=== PATIENT | male | born 1965 | race Caucasian/White ===

== ENCOUNTER 2017-06-02 18:41 | Emergency (ER) | payer OTHER ==
--- NOTE | 2017-06-02 21:15 | ED CLINICAL REPORT ---
Clinical Report - Physicians/Mid Levels [facility] [address] [place] [address] 06/02/2017 18:40 Patient: VALENTINA GARNICA Time Seen: 18:55. Arrived- By private vehicle. Historian- patient. HISTORY OF PRESENT ILLNESS Chief Complaint: DOG BITE. Location of injuries- right hand and left hand and left knee. The injury occurred just prior to arrival. The animal reportedly appeared well and the immunization status of the animal is unknown. Animal control has been notified. Occurred on a street. This was an "unprovoked" attack. (his mother's dog was on a leash. Someone else opened a vehicle and another dog jumped out and attacked her dog. He tried to separate the 2 and the other dog bit him on the hands and on the left knee.). REVIEW OF SYSTEMS No chills, fever, sweats, calf pain or chest pain. No cough, difficulty breathing, pedal edema, palpitations or abdominal pain. No constipation, diarrhea, nausea, vomiting or urinary problems. All systems otherwise negative, except as recorded above. PAST HISTORY Tetanus immunization status is unknown. Problems: Alcohol Intoxication. Burn. Medication Refill. Lip Laceration. Laceration. Hypertension. Dizziness. Lung Disease. Contusion. Abrasion(s). Hypokalemia. Hyponatremia. Substance Abuse. Alcohol Withdrawal. Emphysema. COPD - Chronic Obstructive Pulmonary Disease. Alcoholism. Lower Extremity Pain. Cellulitis. Fall. Foot Fracture. Anemia. Lifestyle / Substance Problems. Thrombocytopenia. Additional Surgeries: Fracture Repair. Leg surgery. Skin grafting. Medications: Albuterol Sulfate HFA Inhalation. Allergies: No Known Drug Allergy. SOCIAL HISTORY Current every day heavy tobacco smoker (cigarette)- less than 1 pack per day. Regular alcohol use. History of drug use: marijuana. FAMILY HISTORY No significant family medical history. ADDITIONAL NOTES The nursing notes have been reviewed. PHYSICAL EXAM Vital Signs: 06/02/2017 18:54 BP: 111/84. HR: 89. RR: 18. O2 saturation: 99%. Temp: 98.1 F. Pain level now: 8/10. Have been reviewed. Appearance: Alert. Head: Head normal on inspection. Eyes: Eyes normal inspection. Neck: Normal inspection. CVS: Heart sounds normal. Respiratory: Breath sounds normal. Abdomen: Normal inspection. Soft and nontender. Back: Normal inspection. No tenderness. Skin: (Prior grafting scars of the lower extremities and left hand.). Extremities: Right hand: multiple small and deep abrasions. (located on the lateral aspect fifth finger). Dorsal left hand: multiple small abrasions. Left knee: superficial 5.0 cm laceration. SEE LACERATION PROCEDURE NOTE #1. Neurovascular intact distally. PROGRESS AND PROCEDURES Laceration Repair: Location: left knee. Time-out completed immediately before the procedure. Length: 5 cm. Complexity: simple (sutured). Wound depth/shape- linear and irregular. Contamination present. Contused tissue present. Tissue loss present. Distal neuro/vascular/tendon status normal. Anesthesia provided using LET and 2% lidocaine with epi. Prepped with Betadine and Hibiclens. Wound explored, cleansed, irrigated and examined to the base in bloodless field. Closure of superficial layer: interrupted 4-0 nylon (5 casimiro). Post-procedure: he is stable and there are no complications. Bleeding is controlled. Dressing applied. Tetanus immunization given. Course of Care: Patient is stable. Patient/family counseled. Old medical records ordered. Disposition: Discharged. Condition: stable. CLINICAL IMPRESSION Multiple superficial and deep dog bites to the right hand, left hand and left knee. Single deep laceration to the left knee. Multiple superficial abrasions. INSTRUCTIONS Protect wound and keep wound area clean. Change dressing twice daily. You may wash wounds briefly, then dry. Apply neosporin twice daily. Sutures/casimiro should be removed in ten days. Warnings: COMPLICATIONS: Complications from this condition include: possible infection, possible foreign body remaining in the wound, possible injury to a nerve, possible injury to a tendon and possible injury to a ligament. Future problems may include infection, scarring, loss of function and pain. INFECTION: Watch for signs of infection (increasing heat and redness, pus-like drainage, swelling, or increased pain). Return or see your doctor if these signs occur. It is important to follow up with a physician for further evaluation and treatment. TETANUS: You were given a tetanus shot during your visit. Make a note for future reference. GENERAL WARNINGS: Return or contact your physician immediately if your condition worsens or changes unexpectedly, if not improving as expected, or if other problems arise. Prescription Medications: Doxycycline 100 mg: Take 1 capsule orally every 12 hours for 10 days. No refill. OTC Medications: Acetaminophen (available over the counter): take according to label instructions. Motrin (available over the counter): take according to label instructions. Follow-up: Follow up with your doctor in ten days for suture removal. Understanding of the discharge instructions verbalized by patient. (Electronically signed by Eriberto Ceron MD 06/03/2017 21:14)
--- NOTE | 2017-06-02 21:15 | ED ORDER SUMMARY ---
..... Patient: VALENTINA GARNICA OrderSheet [facility] VisitID: [id number] [address] [place] [address] 51y, M Registration Date/Time: 06/02/2017 ORDER SHEET Weight: 27.2 kg (stated) Allergies: No Known Drug Allergy GENERAL ORDERS: - (clean wounds) (19:26 06/02/2017 Jim OROPEZA) (19:47 RKaruga) MEDICATION ORDERS: LET Topical 1 application (NOW) (19:25 06/02/2017 Jim OROPEZA) (Cancelled: Physician Order19:43 Niurka R.N.) Lidocaine Injection 2 % (soln) (place at bedside) (19:06/02/2017 Jim OROPEZA) (20:10 Niurka R.N.) Tdap IM 0.5 mL (NOW) (19:26 06/02/2017 Jim OROPEZA) (20:13 obersergey R.N.) Lidocaine Viscous PO (Solution 2 %) 20 mL (Apply to the bitte wounds on lt knee, and lt hand. ) (19:44 06/02/2017 Niurka R.N. verbal order read back to Jim OROPEZA) (20:11 Niurka R.N.) IV FLUIDS: ORDER SHEET NOTES: [Electronically signed by Reshma Esquivel R.N. (21:56 06/02/2017)] [Electronically signed by Eriberto Ceron MD (21:14 06/03/2017)] [Electronically locked/signed by Reshma Esquivel R.N. (21:56 06/02/2017)]
--- NOTE | 2017-06-02 21:15 | ED NURSING NOTES ---
Clinical Report - Nurses Merged With [facility] [address] [place] [address] 06/02/2017 18:40 Patient: VALENTINA GARNICA TRIAGE Triage time 18:54. Acuity: LEVEL 3. Chief Complaint: DOG BITE. Alert. No acute distress. SEPSIS SCREEN: Sepsis Screen: negative. Negative (no infection suspected/documented). MARLI COMA SCORE: Marli Coma Scale: 15- eyes open spontaneously (4); best verbal response- oriented x 4 (5); best motor response- obeys commands (6). --18:58 Reshma Esquivel R.N. 18:54 06/02/17. BP: 111/84. HR: 89. RR: 18. O2 saturation: 99%. Temp: 98.1 F. Pain level now: 810. --18:58 Reshma Esquivel R.N. 18:54 06/02/17. BP: 111/84. HR: 89. RR: 18. O2 saturation: 99%. Temp: 98.1 F. Pain level now: 06/28. --18:58 Reshma Esquivel R.N. Weight: 27.2 kg stated. Height/Length: 67 inches Per Patient. BMI: 9.4. --18:56 Reshma Esquivel R.N. Medications Albuterol Sulfate HFA Inhalation. --18:55 Reshma Esquivel R.N. Medication/allergy information source: the patient. --18:58 Reshma Esquivel R.N. Allergies No Known Drug Allergy. --18:55 Reshma Esquivel R.N. History Arrived by private vehicle. Historian: patient and family. Accompanied by family. No primary care physician. Location of injuries: right hand, left hand and left knee. The animal reportedly appeared well and the immunization status of the animal is unknown. Animal control has not been notified. 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 PAST MEDICAL HX: Tetanus status: up-to-date. SOCIAL HX: Heavy tobacco smoker (cigarette)- less than 1 pack per day. Occasional alcohol use. History of occasional drug use: marijuana. FALL RISK ASSESSMENT: Fall risk assessment completed. No fall risk identified. NUTRITIONAL RISK ASSESSMENT: The nutritional risk assessment revealed no deficiencies. FUNCTIONAL ASSESSMENT: Functional assessment: no impairments noted. LEARNING NEEDS ASSESSMENT: The learning needs assessment revealed no barriers. SKIN INTEGRITY ASSESSMENT: Skin integrity risk assessment completed. No skin integrity risk identified. --18:58 Reshma Esquivel R.N. PROBLEMS: Immunizations. Alcohol Intoxication. Burn. Medication Refill. Tetanus Status. Lip Laceration. Laceration. Hypertension. Dizziness. Lung Disease. Contusion. Abrasion(s). Hypokalemia. Hyponatremia. Abnormal Liver Function Test. Substance Abuse. Alcohol Withdrawal. Emphysema. COPD - Chronic Obstructive Pulmonary Disease. Alcoholism. Lower Extremity Pain. Cellulitis. Fall. Foot Fracture. Anemia. Lifestyle / Substance Problems. Thrombocytopenia. --18:56 Reshma Esquivel R.N. ADDITIONAL SURGERIES: Fracture Repair. Leg surgery. Skin grafting. --18:56 Reshma Esquivel R.N. Interventions ID band on patient. --18:58 Reshma Esquivel R.N. PHYSICAL ASSESSMENT Ambulatory to room. GENERAL / NEURO / PSYCH: Alert. Oriented X 4. Appears in pain and anxious. HEENT: Head non-tender. RESPIRATORY: Respirations not labored. CVS: Capillary refill less than 2 seconds. GI / : Abdomen nontender. EXTREMITIES: Extremities exhibit normal ROM. Neuro-vascular status intact to the extremity. SKIN: Skin is warm and dry. ( bite to lt knee, both hands, multable wounds). --19:00 Reshma Esquivel R.N. NURSING PROGRESS NOTES Extremity elevated. Two patient identifiers checked. Call light placed in reach. Side rails up x 1. Bed placed in lowest position. Brakes of bed on. Patient ready for evaluation. --19:00 Reshma Esquivel R.N. Wound cleansed with water and chlorhexidine (Right hand lacerations on 4th and 5th finger; Left knee). Wound irrigated with 50 mL using a high-pressure irrigation system; patient tolerated procedure well (Right hand lacerations on 4th and 5th finger; Left knee). --19:50 FelixWilma camp 19:44 06/02/2017 Lidocaine Viscous PO 20 mL given. Allergies verified and confirmed 5 rights. (Apply to the bite wounds on lt knee, and rt hand.). --20:11 Reshma Esquivel R.N. 19:47 06/02/2017 TDAP IM 0.5 mL given. (Lot#: [id number], expiration date: 04/24/2019, Dealer Compliance Representative: sanofi pasteur). --20:13 Reshma Esquivel R.N. 19:55 06/02/2017 Lidocaine Injection 2 % given. Allergies verified and confirmed 5 rights. (Dr to apply). --20:10 Reshma Esquivel R.N. Applied clean dressing consisting of 4x4 gauze, following the application of antibiotic ointment (bacitracin). Secured with [place] (Left knee). --21:25 Wilma Skaggs Applied clean dressing consisting of Band-Aid and 4x4 gauze, following the application of antibiotic ointment (bacitracin). Secured with tape (Finger lacerations on right hnd and left hand thumb). --21:26 Wilma Skaggs. DISPOSITION / DISCHARGE 21:30. Condition at departure: improved. No learning barriers present. Discharge instructions provided and reviewed with the patient. Reviewed medication(s) side effects, precautions, dosing and course information. Prescription(s) given to the patient. Patient verbalized understanding. Written instructions provided in [place]. The patient was discharged home and accompanied by parent. He left the Emergency Department ambulatory and via private vehicle. Parent driving. Medication list reviewed and validated. --21:55 Reshma Esquivel R.N. 21:54 06/02/17. BP: 110/78. HR: 77. RR: 18. O2 saturation: 100%. Temp: deferred. Pain level now: 06/28. 18:54 06/02/17. BP: 111/84. HR: 89. RR: 18. O2 saturation: 99%. Temp: 98.1 F. Pain level now: 06/28. --21:55 Reshma Esquivel R.N. Locked/Released at 06/02/2017 21:56 by Reshma Esquivel R.N.
--- NOTE | 2017-06-02 21:15 | ED ORDER SUMMARY ---
..... Patient: VALENTINA GARNICA OrderSheet [facility] VisitID: [id number] [address] [place] [address] 51y, M Registration Date/Time: 06/02/2017 ORDER SHEET Weight: 27.2 kg (stated) Allergies: No Known Drug Allergy GENERAL ORDERS: - (clean wounds) (19:26 06/02/2017 Jim OROPEZA) (19:47 RKaruga) MEDICATION ORDERS: LET Topical 1 application (NOW) (19:25 06/02/2017 Jim OROPEZA) (Cancelled: Physician Order19:43 Niurka R.N.) Lidocaine Injection 2 % (soln) (place at bedside) (19:06/02/2017 Jim OROPEZA) (20:10 Niurka R.N.) Tdap IM 0.5 mL (NOW) (19:26 06/02/2017 Jim OROPEZA) (20:13 obersergey R.N.) Lidocaine Viscous PO (Solution 2 %) 20 mL (Apply to the bitte wounds on lt knee, and lt hand. ) (19:44 06/02/2017 Niurka R.N. verbal order read back to Jim OROPEZA) (20:11 Niurka R.N.) IV FLUIDS: ORDER SHEET NOTES: [Electronically signed by Reshma Esquivel R.N. (21:56 06/02/2017)] [Electronically signed by Eriberto Ceron MD (21:14 06/03/2017)] [Electronically locked/signed by Reshma Esquivel R.N. (21:56 06/02/2017)]
--- NOTE | 2017-06-02 21:15 | ED NURSING NOTES ---
Clinical Report - Nurses [facility] [address] [place] [address] 06/02/2017 18:40 Patient: VALENTINA GARNICA TRIAGE Triage time 18:54. Acuity: LEVEL 3. Chief Complaint: DOG BITE. Alert. No acute distress. SEPSIS SCREEN: Sepsis Screen: negative. Negative (no infection suspected/documented). MARLI COMA SCORE: Marli Coma Scale: 15- eyes open spontaneously (4); best verbal response- oriented x 4 (5); best motor response- obeys commands (6). --18:58 Reshma Esquivel R.N. 18:54 06/02/17. BP: 111/84. HR: 89. RR: 18. O2 saturation: 99%. Temp: 98.1 F. Pain level now: 810. --18:58 Reshma Esquivel R.N. 18:54 06/02/17. BP: 111/84. HR: 89. RR: 18. O2 saturation: 99%. Temp: 98.1 F. Pain level now: 06/28. --18:58 Reshma Esquivel R.N. Weight: 27.2 kg stated. Height/Length: 67 inches Per Patient. BMI: 9.4. --18:56 Reshma Esquivel R.N. Medications Albuterol Sulfate HFA Inhalation. --18:55 Reshma Esquivel R.N. Medication/allergy information source: the patient. --18:58 Reshma Esquivel R.N. Allergies No Known Drug Allergy. --18:55 Reshma Esquivel R.N. History Arrived by private vehicle. Historian: patient and family. Accompanied by family. No primary care physician. Location of injuries: right hand, left hand and left knee. The animal reportedly appeared well and the immunization status of the animal is unknown. Animal control has not been notified. 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 PAST MEDICAL HX: Tetanus status: up-to-date. SOCIAL HX: Heavy tobacco smoker (cigarette)- less than 1 pack per day. Occasional alcohol use. History of occasional drug use: marijuana. FALL RISK ASSESSMENT: Fall risk assessment completed. No fall risk identified. NUTRITIONAL RISK ASSESSMENT: The nutritional risk assessment revealed no deficiencies. FUNCTIONAL ASSESSMENT: Functional assessment: no impairments noted. LEARNING NEEDS ASSESSMENT: The learning needs assessment revealed no barriers. SKIN INTEGRITY ASSESSMENT: Skin integrity risk assessment completed. No skin integrity risk identified. --18:58 Reshma Esquivel R.N. PROBLEMS: Immunizations. Alcohol Intoxication. Burn. Medication Refill. Tetanus Status. Lip Laceration. Laceration. Hypertension. Dizziness. Lung Disease. Contusion. Abrasion(s). Hypokalemia. Hyponatremia. Abnormal Liver Function Test. Substance Abuse. Alcohol Withdrawal. Emphysema. COPD - Chronic Obstructive Pulmonary Disease. Alcoholism. Lower Extremity Pain. Cellulitis. Fall. Foot Fracture. Anemia. Lifestyle / Substance Problems. Thrombocytopenia. --18:56 Reshma Esquivel R.N. ADDITIONAL SURGERIES: Fracture Repair. Leg surgery. Skin grafting. --18:56 Reshma Esquivel R.N. Interventions ID band on patient. --18:58 Reshma Esquivel R.N. PHYSICAL ASSESSMENT Ambulatory to room. GENERAL / NEURO / PSYCH: Alert. Oriented X 4. Appears in pain and anxious. HEENT: Head non-tender. RESPIRATORY: Respirations not labored. CVS: Capillary refill less than 2 seconds. GI / : Abdomen nontender. EXTREMITIES: Extremities exhibit normal ROM. Neuro-vascular status intact to the extremity. SKIN: Skin is warm and dry. ( bite to lt knee, both hands, multable wounds). --19:00 Reshma Esquivel R.N. NURSING PROGRESS NOTES Extremity elevated. Two patient identifiers checked. Call light placed in reach. Side rails up x 1. Bed placed in lowest position. Brakes of bed on. Patient ready for evaluation. --19:00 Reshma Esquivel R.N. Wound cleansed with water and chlorhexidine (Right hand lacerations on 4th and 5th finger; Left knee). Wound irrigated with 50 mL using a high-pressure irrigation system; patient tolerated procedure well (Right hand lacerations on 4th and 5th finger; Left knee). --19:50 FelixWilma camp 19:44 06/02/2017 Lidocaine Viscous PO 20 mL given. Allergies verified and confirmed 5 rights. (Apply to the bite wounds on lt knee, and rt hand.). --20:11 Reshma Esquivel R.N. 19:47 06/02/2017 TDAP IM 0.5 mL given. (Lot#: [id number], expiration date: 04/24/2019, Analytical Laboratory Technician: sanofi pasteur). --20:13 Reshma Esquivel R.N. 19:55 06/02/2017 Lidocaine Injection 2 % given. Allergies verified and confirmed 5 rights. (Dr to apply). --20:10 Reshma Esquivel R.N. Applied clean dressing consisting of 4x4 gauze, following the application of antibiotic ointment (bacitracin). Secured with [place] (Left knee). --21:25 Wilma Skaggs Applied clean dressing consisting of Band-Aid and 4x4 gauze, following the application of antibiotic ointment (bacitracin). Secured with tape (Finger lacerations on right hnd and left hand thumb). --21:26 Wilma Skaggs. DISPOSITION / DISCHARGE 21:30. Condition at departure: improved. No learning barriers present. Discharge instructions provided and reviewed with the patient. Reviewed medication(s) side effects, precautions, dosing and course information. Prescription(s) given to the patient. Patient verbalized understanding. Written instructions provided in [place]. The patient was discharged home and accompanied by parent. He left the Emergency Department ambulatory and via private vehicle. Parent driving. Medication list reviewed and validated. --21:55 Reshma Esquivel R.N. 21:54 06/02/17. BP: 110/78. HR: 77. RR: 18. O2 saturation: 100%. Temp: deferred. Pain level now: 06/28. 18:54 06/02/17. BP: 111/84. HR: 89. RR: 18. O2 saturation: 99%. Temp: 98.1 F. Pain level now: 06/28. --21:55 Reshma Esquivel R.N. Locked/Released at 06/02/2017 21:56 by Reshma Esquivel R.N.
--- NOTE | 2017-06-03 21:15 | ED DISCHARGE INSTRUCTIONS ---
Patient: VALENTINA GARNICA General Instructions [facility] VisitID: [id number] [place] [address] 51y, M Registration Date/Time: 06/02/2017 Multiple superficial and deep dog bites to the right hand, left hand and left knee. Single deep laceration to the left knee. Multiple superficial abrasions. INSTRUCTIONS Protect wound and keep wound area clean. Change dressing twice daily. You may wash wounds briefly, then dry. Apply neosporin twice daily. Sutures/casimiro should be removed in ten days. Warnings: COMPLICATIONS: Complications from this condition include: possible infection, possible foreign body remaining in the wound, possible injury to a nerve, possible injury to a tendon and possible injury to a ligament. Future problems may include infection, scarring, loss of function and pain. INFECTION: Watch for signs of infection (increasing heat and redness, pus-like drainage, swelling, or increased pain). Return or see your doctor if these signs occur. It is important to follow up with a physician for further evaluation and treatment. TETANUS: You were given a tetanus shot during your visit. Make a note for future reference. GENERAL WARNINGS: Return or contact your physician immediately if your condition worsens or changes unexpectedly, if not improving as expected, or if other problems arise. Prescription Medications: Doxycycline 100 mg: Take 1 capsule orally every 12 hours for 10 days. No refill. OTC Medications: Acetaminophen (available over the counter): take according to label instructions. Motrin (available over the counter): take according to label instructions. Follow-up: Follow up with your doctor in ten days for suture removal. Understanding of the discharge instructions verbalized by patient. ADDITIONAL INFORMATION Laceration (All Closures) Alaceration is a cut through the skin. This will usually require stitches (sutures) or casimiro if it is deep. Minor cuts may be treated with a surgical tape closure orskin glue. Home care The following guidelines will help you care for your laceration at home: Extremity, face, or trunk wounds Keep the wound clean and dry. If a bandage was applied and it becomes wet or dirty, replace it. Otherwise, leave it in place for the first 24 hours. If stitches or casimiro were used, clean the wound daily. After removing the bandage, wash the area with soap and water. Use a wet cotton swab to loosen and remove any blood or crust that forms. The doctor may prescribe an antibiotic cream or ointment to prevent infection. Do not stop taking this medication until you have finished the prescribed course or the doctor tells you to stop. The doctor may also prescribe medications for pain. Follow the doctors instructions for taking these medications. You may remove the bandage to shower as usual after the first 24 hours, but do not soak the area in water (no swimming) until the stitches or casimiro are removed. If surgical tape was used, keep the area clean and dry. If it becomes wet, blot it dry with a towel. If skin glue was used, do not scratch, rub, or pick at the adhesive film. Do not place tape directly over the film. Do not apply liquid, ointment, or creams to the wound while the film is in place. Do not clean the wound with peroxide and do not apply ointments. Avoid activities that cause heavy sweating until the film has fallen off. Protect the wound from prolonged exposure to sunlight or tanning lamps. You may shower as usual but do not soak the wound in water (no baths or swimming). The film will fall off by itself in 510 days. Scalp wounds During the first two days, you may carefully rinse your hair in the shower to remove blood, glass or dirt particles. After two days, you may shower and shampoo your hair normally. Do not soak your scalp in the tub or go swimming until the stitches or casimiro have been removed. Talk with your doctor before applying any antibiotic ointment to the wound. Mouth wounds Eat soft foods to reduce pain. If the cut is inside of your mouth, clean by rinsing after each meal and at bedtime with a mixture of equal parts water and hydrogen peroxide (do not swallow!). Or, you can use a cotton swab to directly apply hydrogen peroxide onto the cut. Mouth wounds can be painful when eating. You may use an [id number] local numbing solution for pain relief. If this is not available, you may use any numbing solution for teething babies. You may apply this directly to the sores with a cotton-tip swab or with your finger. Follow-up care Follow up with your health care provider. Most skin wounds heal within ten days. Mouth and facial wounds heal within five days. However, even with proper treatment, a wound infection may sometimes occur. Therefore, you should check the wound daily for signs of infection listed below. Stitches should be removed from the face within five days; stitches and casimiro should be removed from other parts of the body within 714 days. If dissolving stitches were used in the mouth, these will fall out or dissolve without the need for removal. If tape closures were used, remove them yourself if they have not fallen off after 7 days. Ifskin glue was used, the film will fall off by itself in 510 days. When to seek medical care Get prompt medical attention if any of these occur: Bleeding not controlled by direct pressure Signs of infection, including increasing pain in the wound, increasing wound redness or swelling, or pus coming from the wound Fever of 100.4F (38C) or higher, or as directed by your health care provider Stitches or casimiro come apart or fall out or surgical tape falls off before 7 days Wound edges re-open Abrasions Abrasions are skin scrapes. Their treatment depends on how large and deep the abrasion is. Home Care: If you were given a bandage, change it once a day. If your bandage sticks to the wound, soak it in warm water until it loosens. Wash the area with soap and water to remove all the cream/ointment. You may do this in a sink, under a tub faucet or shower. Rinse off the soap and pat dry with a clean towel. Reapply cream/ointment according to your doctor's instructions. This will prevent infection and help prevent the bandage from sticking. Cover the wound with a fresh non-stick bandage (Telfa). Repeat steps 1 to 4 daily, or as directed by your doctor. If the bandage becomes wet or dirty, change it as soon as possible. You may use acetaminophen (Tylenol) or ibuprofen (Motrin, Advil) to control pain, unless another pain medicine was prescribed. [ NOTE : If you have chronic liver or kidney disease or ever had a stomach ulcer or GI bleeding, talk with your doctor before using these medicines.] Do not use ibuprofen in children under six months of age. Follow Up with your physician or this facility as directed by our staff. Most skin wounds heal within ten days. However, an infection may occur despite proper treatment. Therefore, look for the early signs of infection listed below. Get Prompt Medical Attention if any of the following occur: Increasing pain in the wound Increasing redness or swelling Pus coming from the wound Fever of 100.4F (38C) or higher, or as directed by your healthcare provider Diphtheria Toxoid Adsorbed, Pertussis Vaccine, Acellular (Adsorbed), Tetanus Toxoid, Adsorbed Suspension for injection What is this medicine? DIPHTHERIA and TETANUS TOXOIDS; PERTUSSIS VACCINE (dif THEER ee uh and TET n us TOK soids; per TUS iss vak SEEN) is used to prevent diphtheria, tetanus, and pertussis infections. How should I use this medicine? This vaccine is for injection into a muscle. It is given by a health day care director. A copy of Vaccine Information Statements will be given before each vaccination. Read this sheet carefully each time. The sheet may change frequently. Talk to your network project manager regarding the use of this vaccine in children. While the DTP vaccine may be given to children ages 6 weeks to 7 years and the Tdap vaccine may be given to children at least 10 years old, precautions do apply. What side effects may I notice from receiving this medicine? Side effects that you should report to your doctor or health day care director as soon as possible: allergic reactions like skin rash, itching or hives, swelling of the face, lips, or tongue breathing problems fever of 103 degrees F or more flu-like symptoms inconsolable crying infection pain, tingling, numbness in the hands or feet seizures swelling of arm or leg that was injected unusually weak or tired Side effects that usually do not require immediate medical attention (report these side effects to your doctor or health day care director if they continue or are bothersome): fussy, irritable loss of appetite fever of 102 degrees F or less pain, tenderness, redness, swelling, or a 'knot' at site where injected vomiting What may interact with this medicine? immune globulin medicines that suppress your immune function like adalimumab, anakinra, infliximab medicines to treat cancer medicines that treat or prevent blood clots like warfarin, enoxaparin, and dalteparin steroid medicines like prednisone or cortisone What if I miss a dose? It is important not to miss your dose. Call your doctor or health day care director if you are unable to keep an appointment. Where should I keep my medicine? This drug is given in a hospital or clinic and will not be stored at home. What should I tell my health care provider before I take this medicine? They need to know if you have any of these conditions: blood disorders like hemophilia fever or infection immune system problems neurologic disease seizures an unusual or allergic reaction to vaccines, thimerosal, latex, other medicines, foods, dyes, or preservatives or trying to get breast-feeding What should I watch for while using this medicine? See your health care provider for all shots of this vaccine as directed. To have protection from infection, you must have 3 shots of this vaccine plus boosters as needed. Tell your doctor right away if you have any serious or unusual side effects after getting this vaccine. Doxycycline Monohydrate Oral tablet What is this medicine? DOXYCYCLINE (dox keiry SEBASTIÁN plummer) is a tetracycline antibiotic. It kills certain bacteria or stops their growth. It is used to treat many kinds of infections, like dental, skin, respiratory, and urinary tract infections. It also treats acne, Lyme disease, malaria, and certain sexually transmitted infections. How should I use this medicine? Take this medicine by mouth with a full glass of water. Follow the directions on the prescription label. It is best to take this medicine without food, but if it upsets your stomach take it with food. Take your medicine at regular intervals. Do not take your medicine more often than directed. Take all of your medicine as directed even if you think you are better. Do not skip doses or stop your medicine early. Talk to your network project manager regarding the use of this medicine in children. Special care may be needed. While this drug may be prescribed for children as young as 8 years old for selected conditions, precautions do apply. What side effects may I notice from receiving this medicine? Side effects that you should report to your doctor or health day care director as soon as possible: allergic reactions like skin rash, itching or hives, swelling of the face, lips, or tongue difficulty breathing fever itching in the rectal or genital area pain on swallowing redness, blistering, peeling or loosening of the skin, including inside the mouth severe stomach pain or cramps unusual bleeding or bruising unusually weak or tired yellowing of the eyes or skin Side effects that usually do not require medical attention (report to your doctor or health day care director if they continue or are bothersome): diarrhea loss of appetite nausea, vomiting What may interact with this medicine? antacids barbiturates control pills bismuth subsalicylate carbamazepine methoxyflurane other antibiotics phenytoin vitamins that contain iron warfarin What if I miss a dose? If you miss a dose, take it as soon as you can. If it is almost time for your next dose, take only that dose. Do not take double or extra doses. Where should I keep my medicine? Keep out of the reach of children. Store at room temperature, below 30 degrees C (86 degrees F). Protect from light. Keep container tightly closed. Throw away any unused medicine after the expiration date. Taking this medicine after the expiration date can make you seriously ill. What should I tell my health care provider before I take this medicine? They need to know if you have any of these conditions: liver disease long exposure to sunlight like working outdoors stomach problems like colitis an unusual or allergic reaction to doxycycline, tetracycline antibiotics, other medicines, foods, dyes, or preservatives or trying to get breast-feeding What should I watch for while using this medicine? Tell your doctor or health day care director if your symptoms do not improve. Do not treat diarrhea with over the counter products. Contact your doctor if you have diarrhea that lasts more than 2 days or if it is severe and watery. Do not take this medicine just before going to bed. It may not dissolve properly when you lay down and can cause pain in your throat. Drink plenty of fluids while taking this medicine to also help reduce irritation in your throat. This medicine can make you more sensitive to the sun. Keep out of the sun. If you cannot avoid being in the sun, wear protective clothing and use sunscreen. Do not use sun lamps or tanning beds/booths. control pills may not work properly while you are taking this medicine. Talk to your doctor about using an extra method of control. If you are being treated for a sexually transmitted infection, avoid sexual contact until you have finished your treatment. Your sexual partner may also need treatment. Avoid antacids, aluminum, calcium, magnesium, and iron products for 4 hours before and 2 hours after taking a dose of this medicine. If you are using this medicine to prevent malaria, you should still protect yourself from contact with mosquitos. Stay in screened-in areas, use mosquito nets, keep your body covered, and use an insect repellent. Acetaminophen Oral tablet What is this medicine? ACETAMINOPHEN (a set a REGINA jen fen) is a pain reliever. It is used to treat mild pain and fever. How should I use this medicine? Take this medicine by mouth with a glass of water. Follow the directions on the package or prescription label. Take your medicine at regular intervals. Do not take your medicine more often than directed. Talk to your network project manager regarding the use of this medicine in children. While this drug may be prescribed for children as young as 6 years of age for selected conditions, precautions do apply. What side effects may I notice from receiving this medicine? Side effects that you should report to your doctor or health day care director as soon as possible: allergic reactions like skin rash, itching or hives, swelling of the face, lips, or tongue breathing problems fever or sore throat redness, blistering, peeling or loosening of the skin, including inside the mouth trouble passing urine or change in the amount of urine unusual bleeding or bruising unusually weak or tired yellowing of the eyes or skin Side effects that usually do not require medical attention (report to your doctor or health day care director if they continue or are bothersome): headache nausea, stomach upset What may interact with this medicine? alcohol imatinib isoniazid other medicines with acetaminophen What if I miss a dose? If you miss a dose, take it as soon as you can. If it is almost time for your next dose, take only that dose. Do not take double or extra doses. Where should I keep my medicine? Keep out of reach of children. Store at room temperature between 20 and 25 degrees C (68 and 77 degrees F). Protect from moisture and heat. Throw away any unused medicine after the expiration date. What should I tell my health care provider before I take this medicine? They need to know if you have any of these conditions: if you frequently drink alcohol containing drinks liver disease an unusual or allergic reaction to acetaminophen, other medicines, foods, dyes or preservatives or trying to get breast-feeding What should I watch for while using this medicine? Tell your doctor or health day care director if the pain lasts more than 10 days (5 days for children), if it gets worse, or if there is a new or different kind of pain. Also, check with your doctor if a fever lasts for more than 3 days. Do not take other medicines that contain acetaminophen with this medicine. Always read labels carefully. If you have questions, ask your doctor or pharmacist. If you take too much acetaminophen get medical help right away. Too much acetaminophen can be very dangerous and cause liver damage. Even if you do not have symptoms, it is important to get help right away. Ibuprofen Oral tablet What is this medicine? IBUPROFEN (eye BYOO proe fen) is a non-steroidal anti-inflammatory drug (NSAID). It is used for dental pain, fever, headaches or migraines, osteoarthritis, rheumatoid arthritis, or painful monthly periods. It can also relieve minor aches and pains caused by a cold, flu, or sore throat. How should I use this medicine? Take this medicine by mouth with a glass of water. Follow the directions on the prescription label. Take this medicine with food if your stomach gets upset. Try to not lie down for at least 10 minutes after you take the medicine. Take your medicine at regular intervals. Do not take your medicine more often than directed. A special MedGuide will be given to you by the pharmacist with each prescription and refill. Be sure to read this information carefully each time. Talk to your network project manager regarding the use of this medicine in children. Special care may be needed. What side effects may I notice from receiving this medicine? Side effects that you should report to your doctor or health day care director as soon as possible: allergic reactions like skin rash, itching or hives, swelling of the face, lips, or tongue black or bloody stools, blood in the urine or in vomit breathing problems changes in vision chest pain general ill feeling or flu-like symptoms nausea or vomiting redness, blistering, peeling or loosening of the skin, including inside the mouth slurred speech or weakness on one side of the body stomach pain unexplained weight gain or swelling unusually weak or tired yellowing of eyes or skin Side effects that usually do not require medical attention (report to your doctor or health day care director if they continue or are bothersome): constipation or diarrhea dizziness gas or heartburn stomach upset What may interact with this medicine? Do not take this medicine with any of the following medications: cidofovir ketorolac methotrexate pemetrexed This medicine may also interact with the following medications: alcohol aspirin diuretics lithium other drugs for inflammation like prednisone warfarin What if I miss a dose? If you miss a dose, take it as soon as you can. If it is almost time for your next dose, take only that dose. Do not take double or extra doses. Where should I keep my medicine? Keep out of the reach of children. Store at room temperature between 15 and 30 degrees C (59 and 86 degrees F). Keep container tightly closed. Throw away any unused medicine after the expiration date. What should I tell my health care provider before I take this medicine? They need to know if you have any of these conditions: asthma cigarette smoker drink more than 3 alcohol containing drinks a day heart disease or circulation problems such as heart failure or leg edema (fluid retention) high blood pressure kidney disease liver disease stomach bleeding or ulcers an unusual or allergic reaction to ibuprofen, aspirin, other NSAIDS, other medicines, foods, dyes, or preservatives or trying to get breast-feeding What should I watch for while using this medicine? Tell your doctor or healthcare professional if your symptoms do not start to get better or if they get worse. This medicine does not prevent heart attack or stroke. In fact, this medicine may increase the chance of a heart attack or stroke. The chance may increase with longer use of this medicine and in people who have heart disease. If you take aspirin to prevent heart attack or stroke, talk with your doctor or health day care director. Do not take other medicines that contain aspirin, ibuprofen, or naproxen with this medicine. Side effects such as stomach upset, nausea, or ulcers may be more likely to occur. Many medicines available without a prescription should not be taken with this medicine. This medicine can cause ulcers and bleeding in the stomach and intestines at any time during treatment. Ulcers and bleeding can happen without warning symptoms and can cause . To reduce your risk, do not smoke cigarettes or drink alcohol while you are taking this medicine. You may get drowsy or dizzy. Do not drive, use machinery, or do anything that needs mental alertness until you know how this medicine affects you. Do not stand or sit up quickly, especially if you are an older patient. This reduces the risk of dizzy or fainting spells. This medicine can cause you to bleed more easily. Try to avoid damage to your teeth and gums when you brush or floss your teeth. You have been given the following additional information: Laceration, All Abrasion Diphtheria Toxoid Adsorbed, Pertussis Vaccine, Acellular (Adsorbed), Tetanus Toxoid, Adsorbed Suspension for injection Doxycycline Monohydrate Oral tablet Acetaminophen Oral tablet Ibuprofen Oral tablet (Electronically signed by Eriberto Ceron MD 06/03/2017 21:14)
--- NOTE | 2017-06-03 21:15 | ED MED RECONCILIATION SUMMARY ---
Patient: VALENTINA GARNICA Medication Reconciliation Report [facility] VisitID: [id number] [address] [place] [address] 51y, M Registration Date/Time: 06/02/2017 Weight: 27.2 kg Height/Length: 67 in. BMI: 9.4 ALLERGIES: No Known Drug Allergy The patient's Home Medications are listed below: THE FOLLOWING MEDICATIONS NEED TO BE RECONCILED: Albuterol Sulfate HFA Inhalation The source(s) of the original Home Medication information: patient The following Medications were given to the patient in the Emergency Department: Lidocaine [Injection] Injection 2 %, administered: 06/02/2017 7:55:00 PM Lidocaine Viscous [PO] PO 20 mL, administered: 06/02/2017 7:44:00 PM TDAP [IM] IM 0.5 mL, administered: 06/02/2017 7:47:00 PM The following Medications were prescribed to the patient: Acetaminophen (available over the counter): take according to label instructions. -- Eriberto Ceron MD Motrin (available over the counter): take according to label instructions. -- Eriberto Ceron MD Doxycycline 100 mg: Take 1 capsule orally every 12 hours for 10 days. No refill. -- Eriberto Ceron MD
--- NOTE | 2017-06-03 21:15 | ED MAR SUMMARY ---
..... Medication Administration Record [facility] [address] [place] [address] Patient: VALENTINA GARNICA Visit ID: [id number] 51y, M Weight: 27.2 kg Height/Length: 67 in BMI: 9.4 ALLERGIES: No Known Drug Allergy Given 19:44 06/02/2017 Reshma Esquivel R.N. Medication Administered: LIDOCAINE VISCOUS [PO], Dose: 20 mL PO. Medication Ordered: Lidocaine Viscous PO (Solution 2 %) 20 mL (Apply to the bitte wounds on lt knee, and lt hand. ). Given 19:47 06/02/2017 Reshma Esquivel R.N. Medication Administered: TDAP [IM], Dose: 0.5 mL IM. Medication Ordered: Tdap IM 0.5 mL (NOW). Given 19:55 06/02/2017 Reshma Esquivel R.N. Medication Administered: LIDOCAINE [INJECTION], Dose: 2 % Injection. Medication Ordered: Lidocaine Injection 2 % (soln) (place at bedside).
--- NOTE | 2017-06-03 21:15 | ED MED RECONCILIATION SUMMARY ---
Patient: VALENTINA GARNICA Medication Reconciliation Report [facility] VisitID: [id number] [address] [place] [address] 51y, M Registration Date/Time: 06/02/2017 Weight: 27.2 kg Height/Length: 67 in. BMI: 9.4 ALLERGIES: No Known Drug Allergy The patient's Home Medications are listed below: THE FOLLOWING MEDICATIONS NEED TO BE RECONCILED: Albuterol Sulfate HFA Inhalation The source(s) of the original Home Medication information: patient The following Medications were given to the patient in the Emergency Department: Lidocaine [Injection] Injection 2 %, administered: 06/02/2017 7:55:00 PM Lidocaine Viscous [PO] PO 20 mL, administered: 06/02/2017 7:44:00 PM TDAP [IM] IM 0.5 mL, administered: 06/02/2017 7:47:00 PM The following Medications were prescribed to the patient: Acetaminophen (available over the counter): take according to label instructions. -- Eriberto Ceron MD Motrin (available over the counter): take according to label instructions. -- Eriberto Ceron MD Doxycycline 100 mg: Take 1 capsule orally every 12 hours for 10 days. No refill. -- Eriberto Ceron MD
--- NOTE | 2017-06-03 21:15 | ED MAR SUMMARY ---
..... Medication Administration Record [facility] [address] [place] [address] Patient: VALENTINA GARNICA Visit ID: [id number] 51y, M Weight: 27.2 kg Height/Length: 67 in BMI: 9.4 ALLERGIES: No Known Drug Allergy Given 19:44 06/02/2017 Reshma Esquivel R.N. Medication Administered: LIDOCAINE VISCOUS [PO], Dose: 20 mL PO. Medication Ordered: Lidocaine Viscous PO (Solution 2 %) 20 mL (Apply to the bitte wounds on lt knee, and lt hand. ). Given 19:47 06/02/2017 Reshma Esquivel R.N. Medication Administered: TDAP [IM], Dose: 0.5 mL IM. Medication Ordered: Tdap IM 0.5 mL (NOW). Given 19:55 06/02/2017 Reshma Esquivel R.N. Medication Administered: LIDOCAINE [INJECTION], Dose: 2 % Injection. Medication Ordered: Lidocaine Injection 2 % (soln) (place at bedside).
== END 2017-06-02 21:30 | disposition home or self-care (01) ==
LOC: ED SRH 18:41
DX: S81.012A Laceration without foreign body, left knee, initial encounter (principal); S61.451A Open bite of right hand, initial encounter; S61.452A Open bite of left hand, initial encounter; S81.052A Open bite, left knee, initial encounter; W54.0XXA Bitten by dog, initial encounter; Y93.9 Activity, unspecified; Y92.410 Unspecified street and highway as the place of occurrence of the external cause; Y99.9 Unspecified external cause status; Z23 Encounter for immunization; I10 Essential (primary) hypertension